=== PATIENT | female | born 1980 | race African-American/Black ===

== ENCOUNTER 2022-06-10 16:52 | Emergency (ER) | payer MEDICAID ==
[~2022-06-10] VITALS: Ht 175.3 cm; Wt 77.0 kg
[2022-06-10 17:09] VITALS: BP 139/77
== END 2022-06-11 02:23 | disposition left against medical advice (07) ==
LOC: ER 16:52
DX: R10.2 Pelvic and perineal pain (principal); Z53.21 Procedure and treatment not carried out due to patient leaving prior to being seen by health care provider
CPT/HCPCS: 99281

== ENCOUNTER 2023-10-02 15:58 | Emergency (ER) | payer MEDICAID ==
[~2023-10-02] VITALS: Ht 170.2 cm; Wt 81.0 kg
[2023-10-02 16:02] VITALS: O2SAT 99
[2023-10-02] MEDS: LIDOCAINE HCL 1% 20ML VIAL INFIL ONE (17:28)
[2023-10-02] MEDS: TETANUS, DIPHTHERIA, PERTUSSIS VAC/PF 0.5ML (>10YR OLD) IM ONE (17:29)
[2023-10-02] MEDS ORDERED: IBUP-1523 MT (18:51)
[2023-10-02] MEDS ORDERED: SULF1TAB48 MT (18:51)
[2023-10-02] MEDS ORDERED: TOPUD MT (18:51)
[2023-10-02 18:58] VITALS: BP 122/74; PULSE 100; RESP 18; TEMP 98.8
== END 2023-10-02 18:57 | disposition home or self-care (01) ==
LOC: ER 16:07
DX: L02.414 Cutaneous abscess of left upper limb (principal)
CPT/HCPCS: 90715; 10060; 90471; 99283; J3490; Z7610

== ENCOUNTER 2023-10-04 15:32 | Emergency (ER) | payer MEDICAID ==
[~2023-10-04] VITALS: Ht 175.3 cm; Wt 72.6 kg
[~2023-10-04 15:32] MED LIST: IBUP-1523 MT; SULF1TAB48 MT; TOPUD MT
[2023-10-04 16:04] VITALS: BP 135/86; PULSE 101; RESP 16; TEMP 98.6; O2SAT 100
== END 2023-10-04 17:20 | disposition home or self-care (01) ==
LOC: ER 15:32
DX: L02.414 Cutaneous abscess of left upper limb (principal); Z48.00 Encounter for change or removal of nonsurgical wound dressing
CPT/HCPCS: 99281

== ENCOUNTER 2024-04-11 23:51 | Emergency (ER) | payer MEDICAID ==
[~2024-04-11] VITALS: Ht 167.6 cm; Wt 73.0 kg
[2024-04-11 23:54] VITALS: TEMP 98.2; O2SAT 96
[2024-04-12 02:00] VITALS: BP 144/92; PULSE 81; RESP 18
[2024-04-12] MEDS: IBUPROFEN 600MG TABLET PO ONE (02:00)
[2024-04-12] MEDS ORDERED: IBUP-2029 MT (02:09)
== END 2024-04-12 03:46 | disposition home or self-care (01) ==
LOC: ER 23:51
DX: S83.92XA Sprain of unspecified site of left knee, initial encounter (principal); S93.402A Sprain of unspecified ligament of left ankle, initial encounter; F10.90 Alcohol use, unspecified, uncomplicated; V23.99XA Unspecified rider of other motorcycle injured in collision with car, pick-up truck or van in traffic accident, initial encounter; Y93.55 Activity, bike riding; Y92.89 Other specified places as the place of occurrence of the external cause; Y99.8 Other external cause status; Y90.9 Presence of alcohol in blood, level not specified
CPT/HCPCS: 73562; 73610; 99284

== ENCOUNTER 2024-04-12 08:30 | Emergency (ER) | payer MEDICAID ==
[~2024-04-12] VITALS: Ht 175.3 cm; Wt 82.0 kg
[~2024-04-12 08:30] MED LIST changes: +IBUP-2029 MT
[2024-04-12 08:39] VITALS: O2SAT 100
[2024-04-12 08:46] VITALS: BP 132/89; PULSE 93; RESP 18; TEMP 98.5; O2SAT 100
== END 2024-04-12 10:58 | disposition home or self-care (01) ==
LOC: ER 08:30
DX: M79.10 Myalgia, unspecified site (principal); Z59.00 Homelessness unspecified; Z98.890 Other specified postprocedural states
CPT/HCPCS: 71101; 81025; 99283

== ENCOUNTER 2024-04-16 15:06 | Emergency (ER) | payer MEDICAID ==
[~2024-04-16] VITALS: Ht 172.7 cm; Wt 87.0 kg
[2024-04-16 15:08] VITALS: TEMP 98.4; O2SAT 100
[2024-04-16 19:49] VITALS: BP 118/72; PULSE 84; RESP 18
[2024-04-16] MEDS: ONDANSETRON HCL 4MG/2ML INJ IM ONE (19:49)
[2024-04-16] MEDS: KETOROLAC 30MG/ML VIAL IV ONE (19:49)
== END 2024-04-16 20:15 | disposition home or self-care (01) ==
LOC: ER 15:06
DX: M25.512 Pain in left shoulder (principal); M79.652 Pain in left thigh; M54.9 Dorsalgia, unspecified; Z98.890 Other specified postprocedural states; V89.2XXA Person injured in unspecified motor-vehicle accident, traffic, initial encounter; Y93.89 Activity, other specified; Y92.89 Other specified places as the place of occurrence of the external cause; Y99.8 Other external cause status
CPT/HCPCS: 99284; 96374; 81025; 73030; 96372; J1885; J2405

== ENCOUNTER 2024-09-07 13:56 | Emergency (ER) | payer MEDICAID ==
[~2024-09-07] VITALS: Ht 175.3 cm; Wt 75.0 kg
[2024-09-07 14:07] VITALS: O2SAT 100
[2024-09-07 14:57] LABS: BASOPHILS % 0.6 % (0.0-2.0); EOSINOPHILS % 1.7 % (0.0-5.0); HEMATOCRIT. 37.4 % (36.0-48.0); HEMOGLOBIN. 12.5 g/dL (12.0-16.0); LYMPHOCYTES % 31.3 % (20.0-50.0); MEAN CORPUSCULAR HEMOGLOBIN 31.3 pg (28.0-32.0); MEAN CORPUSCULAR HGB CONC 33.4 g/dL (31.0-37.0); MEAN CORPUSCULAR VOLUME 93.7 fL (81.0-99.0); MEAN PLATELET VOLUME 8.7 fl (7.4-10.4); MONOCYTES % 9.6 % (2.0-8.0); NEUTROPHILS % 56.8 % (40.0-76.0); PLATELET 225 x1000/uL (130-400); RED BLOOD CELL COUNT 3.99 mill/uL (4.2-5.4); RED CELL DISTRIBUTION WIDTH 14.7 % (11.6-14.6); WHITE BLOOD COUNT 5.3 x1000/uL (4.5-11.0)
[2024-09-07 15:05] LABS: CARBON DIOXIDE 25 mEq/L (21-32); CHLORIDE 107 mEq/L (98-107); POTASSIUM 3.8 mEq/L (3.5-5.1); SODIUM 139 mEq/L (136-145)
[2024-09-07 15:06] LABS: CALCIUM 9.2 mg/dL (8.7-10.4)
[2024-09-07 15:11] LABS: CREATININE 1.1 mg/dL (0.6-1.0); GLUCOSE 133 mg/dL (70-105); UREA NITROGEN BLOOD 13 mg/dL (9-23)
[2024-09-07 15:13] LABS: ALANINE AMINOTRANSFERASE 16 IU/L (10-49); ALBUMIN 4.2 g/dL (3.2-4.8); ASPARTATE AMINOTRANSFERASE 16 IU/L (<34); BILIRUBIN DIRECT < 0.1 mg/dL (<=3.0); BILIRUBIN TOTAL 0.3 mg/dL (0.1-1.0); PROTEIN TOTAL 6.7 g/dL (6.0-8.3)
[2024-09-07 15:17] LABS: INR 0.9
[2024-09-07] MEDS ORDERED: B12/1TAB MT (15:22)
[2024-09-07 15:30] VITALS: BP 136/81; PULSE 88; RESP 16; TEMP 36.6; O2SAT 100
== END 2024-09-07 15:35 | disposition home or self-care (01) ==
LOC: ER 13:56
DX: R20.2 Paresthesia of skin (principal); Z79.899 Other long term (current) drug therapy; Z98.890 Other specified postprocedural states
CPT/HCPCS: 36415; 80048; 80076; 85025; 99283

== ENCOUNTER 2024-09-29 23:07 | Emergency (ER) | payer MEDICAID ==
[~2024-09-29] VITALS: Ht 175.3 cm; Wt 73.0 kg
[~2024-09-29 23:07] MED LIST changes: +B12/1TAB MT
[2024-09-29 23:27] VITALS: O2SAT 100
[2024-09-30] MEDS ORDERED: AMOX1TAB16 MT (02:07)
[2024-09-30 02:12] VITALS: BP 137/90; PULSE 68; RESP 18; TEMP 36.8; O2SAT 100
[2024-09-30] MEDS: TETANUS, DIPHTHERIA, PERTUSSIS VAC/PF 0.5ML (>10YR OLD) IM ONE (02:18)
== END 2024-09-30 02:21 | disposition home or self-care (01) ==
LOC: ER 23:16
DX: S01.85XA Open bite of other part of head, initial encounter (principal); Z79.899 Other long term (current) drug therapy; W54.0XXA Bitten by dog, initial encounter; Y93.89 Activity, other specified; Y92.89 Other specified places as the place of occurrence of the external cause; Y99.8 Other external cause status
CPT/HCPCS: 90471; 90715; 99283

== ENCOUNTER 2024-12-08 14:20 | Emergency (ER) | payer MEDICAID ==
[~2024-12-08] VITALS: Ht 170.2 cm; Wt 69.0 kg
[~2024-12-08 14:20] MED LIST changes: +AMOX1TAB16 MT; +IBUP-1455 MT; -IBUP-2029 MT
[2024-12-08 14:29] VITALS: O2SAT 98
[2024-12-08 17:14] LABS: COLOR URINE YELLOW (YELLOW); GLUCOSE URINE NEGATIVE (NEGATIVE); KETONES URINE TRACE (NEGATIVE); LEUKOCYTE ESTERASE URINE NEGATIVE (NEGATIVE); NITRITE URINE NEGATIVE (NEGATIVE); OCCULT BLOOD URINE NEGATIVE (NEGATIVE); PH URINE 5.0 (4.5-8.0); PROTEIN URINE TRACE (NEGATIVE); SPECIFIC GRAVITY URINE 1.032 (1.005-1.030); UROBILINOGEN URINE 1.0 E.U./dL (0.2-1.0)
[2024-12-08] MEDS: LIDOCAINE 5% PATCH TOP SCH (17:42)
[2024-12-08 17:48] LABS: CLARITY URINE HAZY (CLEAR)
[2024-12-08 17:49] LABS: BACTERIA URINE TRACE; RBC URINE NONE SEEN /hpf (0-2); SQUAMOUS EPITHELIAL CELL URINE 2+ /lpf (RARE/1+); WBC URINE 0-2 /hpf (0-2)
[2024-12-08 17:50] LABS: MUCUS URINE TRACE /lpf (< = 2+)
[2024-12-08] MEDS ORDERED: ACET-2708 MT (18:10)
[2024-12-08] MEDS ORDERED: LIDO-53 TP (18:10)
[2024-12-08 18:25] VITALS: BP 127/71; PULSE 85; RESP 20; TEMP 36.8; O2SAT 99
[2024-12-08] MEDS: GABAPENTIN 100MG CAPSULE PO ONE (18:48)
[2024-12-08] MEDS: KETOROLAC 30MG/ML VIAL IM ONE (18:48)
== END 2024-12-08 18:57 | disposition home or self-care (01) ==
LOC: ER 14:20
DX: M54.50 Low back pain, unspecified (principal); M16.12 Unilateral primary osteoarthritis, left hip; F10.90 Alcohol use, unspecified, uncomplicated; W18.30XA Fall on same level, unspecified, initial encounter; Y93.89 Activity, other specified; Y92.89 Other specified places as the place of occurrence of the external cause; Y99.8 Other external cause status; Y90.9 Presence of alcohol in blood, level not specified
CPT/HCPCS: 99284; 81003; 81025; 72170; 96372; J1885

== ENCOUNTER 2024-12-26 19:39 | Emergency (ER) | payer MEDICAID ==
[~2024-12-26] VITALS: Ht 175.3 cm; Wt 78.0 kg
[~2024-12-26 19:39] MED LIST changes: +ACET-2708 MT; +LIDO-53 TP
[2024-12-26 19:41] VITALS: O2SAT 100
[2024-12-26 19:44] VITALS: TEMP 36.7; O2SAT 100
[2024-12-26 21:17] VITALS: BP 156/90; PULSE 92; RESP 18
[2024-12-26] MEDS: DIPHENHYDRAMINE 25MG CAPSULE PO ONE (21:17)
[2024-12-26] MEDS: METOCLOPRAMIDE HCL 10MG TABLET PO ONE (21:17)
[2024-12-26] MEDS: KETOROLAC 15MG/ML VIAL IM ONE (21:17)
== END 2024-12-26 21:20 | disposition home or self-care (01) ==
LOC: ER 19:39
DX: G43.909 Migraine, unspecified, not intractable, without status migrainosus (principal); F10.90 Alcohol use, unspecified, uncomplicated; Z79.899 Other long term (current) drug therapy; Y90.9 Presence of alcohol in blood, level not specified
CPT/HCPCS: 99282